=== PATIENT | male | born 1950 | race Caucasian/White ===

== ENCOUNTER 2017-07-12 12:23 | Emergency (ER) | payer MEDICARE, MEDICAID ==
[~2017-07-12] VITALS: Ht 175.3 cm; Wt 58.2 kg
[~2017-07-12 12:23] MED LIST: ALBU18HF2 INH; APIX5TAB3 PO; CIPR-230 PO; DILT120C62 PO; IPRA4AER IH; MORP30TA60 PO; PRED5TAB PO; TEMA15CA PO; TIOT4MIS3 INH
[2017-07-12 12:28] VITALS: BP 145/97
[2017-07-12 13:12] LABS: BASOPHILS # (AUTO) 0.2 X10'3 (0-0.2); BASOPHILS % (AUTO) 1.2 % (0-1); EOSINOPHILS # (AUTO) 0.3 X10'3 (0-0.9); EOSINOPHILS % (AUTO) 2.5 % (0-6); HEMATOCRIT 47.1 % (42.0-52.0); HEMOGLOBIN 15.8 g/dl (14.0-17.9); LYMPHOCYTES # (AUTO) 2.3 X10'3 (1.1-4.8); LYMPHOCYTES % (AUTO) 18.2 % (21-51); MEAN CORPUSCULAR HEMOGLOBIN 33.2 PG (27.0-31.0); MEAN CORPUSCULAR HGB CONC 33.5 % (33.0-36.5); MEAN PLATELET VOLUME 7.9 FL (7.4-10.4); MONOCYTES # (AUTO) 0.9 X10'3 (0-0.9); MONOCYTES % (AUTO) 6.7 % (2-12); NEUTROPHILS % (AUTO) 71.4 % (42-75); PLATELET COUNT 199 X10'3 (140-440); RED BLOOD COUNT 4.76 X10'6 (4.70-6.10); WHITE BLOOD COUNT 12.7 X10'3 (4.5-11.0)
[2017-07-12 13:21] LABS: INR 1.2 INR; PARTIAL THROMBOPLASTIN TIME 28 SECONDS (22-32); PROTHROMBIN TIME 12.6 SECONDS (9.0-12.0)
[2017-07-12 13:27] LABS: ALANINE AMINOTRANSFERASE 225 U/L (12-78); ALBUMIN 3.6 G/DL (3.4-5.0); ALBUMIN/GLOBULIN RATIO 0.8 (1.1-1.5); ALKALINE PHOSPHATASE 86 IU/L (46-116); ANION GAP 3 (8-16); ASPARTATE AMINO TRANSFERASE 159 U/L (10-37); BILIRUBIN,TOTAL 0.9 MG/DL (0.1-1.0); BLOOD UREA NITROGEN 14 MG/DL (7-18); BUN/CREATININE RATIO 16.7 (5.4-32.0); CALCIUM 8.7 MG/DL (8.5-10.1); CHLORIDE 103 MMOL/L (99-107); CREATININE 0.84 MG/DL (0.60-1.10); GLUCOSE 94 MG/DL (70-104); POTASSIUM 4.1 MMOL/L (3.5-5.1); SODIUM 142 MMOL/L (135-145); TOTAL CARBON DIOXIDE 36.2 MMOL/L (24-32); TOTAL PROTEIN 7.9 G/DL (6.4-8.2); eGFR > 90 ML/MIN
== END 2017-07-12 14:18 | disposition home or self-care (01) ==
LOC: ER 12:24
DX: J44.9 Chronic obstructive pulmonary disease, unspecified (principal); Z87.891 Personal history of nicotine dependence
CPT/HCPCS: 36415; 71045; 80053; 84484; 85025; 85610; 85730; 93005; 99285; J7030

== ENCOUNTER 2018-01-05 15:06 | Outpatient (CLI) | payer MEDICARE, MEDICAID ==
[~2018-01-05] VITALS: Ht 175.3 cm; Wt 55.3 kg
[2018-01-05] MEDS ORDERED: MORP30TA60 PO (15:53)
[2018-01-05] MEDS ORDERED: MORP15TA PO (15:55)
[2018-01-05 15:57] LABS: BASOPHILS % (AUTO) 0.5 % (0-1); EOSINOPHILS # (AUTO) 0.1 X10'3 (0-0.9); EOSINOPHILS % (AUTO) 1.8 % (0-6); LYMPHOCYTES # (AUTO) 0.9 X10'3 (1.1-4.8); LYMPHOCYTES % (AUTO) 13.8 % (21-51); MEAN CORPUSCULAR HEMOGLOBIN 32.3 PG (27.0-31.0); MEAN CORPUSCULAR HGB CONC 33.1 % (33.0-36.5); MEAN CORPUSCULAR VOLUME 97.5 FL (78-98); MEAN PLATELET VOLUME 8.1 FL (7.4-10.4); MONOCYTES # (AUTO) 0.6 X10'3 (0-0.9); MONOCYTES % (AUTO) 9.8 % (2-12); NEUTROPHILS # (AUTO) 4.7 X10'3 (1.8-7.7); NEUTROPHILS % (AUTO) 74.1 % (42-75); PRE OP HEMATOCRIT 43.6 % (42.0-52.0); PRE OP HEMOGLOBIN 14.4 g/dL (14.0-17.9); PRE OP PLATELET COUNT 121 X10'3 (140-440); RED BLOOD COUNT 4.47 X10'6 (4.70-6.10)
[2018-01-05] MEDS ORDERED: ALBU8HFA PO (15:59)
[2018-01-05 16:08] LABS: PRE OP INR 1.3 INR; PRE OP PROTIME 13.1 SECONDS (9.0-12.0)
[2018-01-05 16:11] LABS: ALBUMIN 3.1 G/DL (3.4-5.0); ALBUMIN/GLOBULIN RATIO 0.7 (1.1-1.5); ALKALINE PHOSPHATASE 97 IU/L (46-116); BLOOD UREA NITROGEN 12 MG/DL (7-18); BUN/CREATININE RATIO 14.8 (5.4-32.0); CALCIUM 9.4 MG/DL (8.5-10.1); CHLORIDE 101 MMOL/L (99-107); CREATININE 0.81 MG/DL (0.60-1.10); PRE OP ALT 31 U/L (30-65); PRE OP ANION GAP 1 (8-16); PRE OP AST 47 U/L (10-37); PRE OP BILIRUB, TOTAL 0.9 MG/DL (0.0-1.0); PRE OP GLUCOSE 116 MG/DL (70-104); PRE OP SODIUM 137 MMOL/L (135-145); TOTAL CARBON DIOXIDE 34.8 MMOL/L (24-32); TOTAL PROTEIN 7.8 G/DL (6.4-8.2); eGFR > 90 ML/MIN
[2018-01-08] MEDS ORDERED: ringers solution, lacted 1,000 ML IV SCH (05:00)
[2018-01-08] MEDS ORDERED: famotidine 20mg tablet PO ONE (05:30)
== END 2018-01-05 23:59 | disposition home or self-care (01) ==
LOC: PRE-OP 15:06 → EDSTATUS 01-08 15:00
PROVIDERS: ATTEND Anesthesiology Pain Medicine
DX: Z01.818 Encounter for other preprocedural examination (principal); M80.08XA Age-related osteoporosis with current pathological fracture, vertebra(e), initial encounter for fracture; S32.038A Other fracture of third lumbar vertebra, initial encounter for closed fracture; R94.31 Abnormal electrocardiogram [ECG] [EKG]; I48.91 Unspecified atrial fibrillation; I44.4 Left anterior fascicular block; I49.3 Ventricular premature depolarization; Z79.899 Other long term (current) drug therapy; Z88.8 Allergy status to other drugs, medicaments and biological substances; Z99.81 Dependence on supplemental oxygen; Z87.891 Personal history of nicotine dependence
CPT/HCPCS: 36415; 80053; 85025; 85610; 85730; 93005; J7120

== ENCOUNTER 2018-05-31 00:53 | Inpatient (IN) | payer MEDICARE, MEDICAID ==
[~2018-05-31] VITALS: Ht 175.3 cm; Wt 65.5 kg
[~2018-05-31 00:53] MED LIST changes: +ALBU8HFA PO; -CIPR-230 PO; -DILT120C62 PO; +MORP15TA PO; -PRED5TAB PO; -TEMA15CA PO; -TIOT4MIS3 INH
[2018-05-31] MEDS ORDERED: methylPREDNISolone sod succ 125mg/2ml vial IV ONE (00:55)
[2018-05-31] MEDS ORDERED: ipratropium/albuterol 3ml nebule NEB ONE (00:55)
[2018-05-31] MEDS ORDERED: CefTRIAXone 2gm/D5W 50ml 50 ML IV ONE (00:55)
[2018-05-31] MEDS ORDERED: diltiazem 5mg/ml 5ml inj. IV ONE ×2 (01:00→01:40)
[2018-05-31 01:20] LABS: ABG BASE EXCESS 6.3 mmol/L (-2.0-3.0); ABG HCO3 33.8 mmol/L (22.0-26.0); ABG OXYGEN SATURATION 99.5 % (95-98); ABG PCO2 (T) 60.6 mmHg (35.0-48.0); ABG PH (T) 7.365 (7.350-7.450); ABG PO2 (T) 271.6 mmHg (83-108); ALLEN'S TEST Positive; FCOHb 1.5 % (0.5-1.5); FMetHb 0.3 % (0.3-1.12); FO2Hb 97.7 % (94-100); PATIENT TEMPERATURE 37.1; RESPIRATORY RATE (OBSERVED) 20 b/min
[2018-05-31 01:40] LABS: ALANINE AMINOTRANSFERASE 39 U/L (12-78); ALBUMIN 3.1 G/DL (3.4-5.0); ALBUMIN/GLOBULIN RATIO 0.6 (1.1-1.5); ALKALINE PHOSPHATASE 96 IU/L (46-116); ANION GAP 5 (8-16); ASPARTATE AMINO TRANSFERASE 74 U/L (10-37); BILIRUBIN,TOTAL 1.5 MG/DL (0.1-1.0); BLOOD UREA NITROGEN 16 MG/DL (7-18); BUN/CREATININE RATIO 14.4 (5.4-32.0); CALCIUM 9.1 MG/DL (8.5-10.1); CHLORIDE 101 MMOL/L (99-107); CREATININE 1.11 MG/DL (0.60-1.10); GLUCOSE 116 MG/DL (70-104); INR 1.6 INR; POTASSIUM 5.3 MMOL/L (3.5-5.1); PROTHROMBIN TIME 15.7 SECONDS (9.0-12.0); SODIUM 142 MMOL/L (135-145); TOTAL CARBON DIOXIDE 36.4 MMOL/L (24-32); TOTAL PROTEIN 8.3 G/DL (6.4-8.2); eGFR 66 ML/MIN
[2018-05-31 01:41] LABS: PARTIAL THROMBOPLASTIN TIME 28 SECONDS (22-32)
[2018-05-31 01:47] LABS: MAGNESIUM 1.9 MG/DL (1.5-2.4)
[2018-05-31 01:48] LABS: BASOPHILS # (AUTO) 0.2 X10'3 (0-0.2); EOSINOPHILS % (AUTO) 0 % (0-6); LYMPHOCYTES # (AUTO) 0.5 X10'3 (1.1-4.8); LYMPHOCYTES % (AUTO) 4.3 % (21-51); MONOCYTES # (AUTO) 0.8 X10'3 (0-0.9); MONOCYTES % (AUTO) 6.5 % (2-12); NEUTROPHILS # (AUTO) 10.5 X10'3 (1.8-7.7); NEUTROPHILS % (AUTO) 87.2 % (42-75)
[2018-05-31 02:04] LABS: HEMATOCRIT 46.9 % (42.0-52.0); HEMOGLOBIN 15.3 g/dl (14.0-17.9); MEAN CORPUSCULAR HEMOGLOBIN 32.1 PG (27.0-31.0); MEAN CORPUSCULAR HGB CONC 32.7 % (33.0-36.5); MEAN CORPUSCULAR VOLUME 98.3 FL (78-98); MEAN PLATELET VOLUME 8.3 FL (7.4-10.4); PLATELET COUNT 125 X10'3 (140-440); RED BLOOD COUNT 4.77 X10'6 (4.70-6.10); RED CELL DISTRIBUTION WIDTH 15.2 % (11.5-14.5); WHITE BLOOD COUNT 13.1 X10'3 (4.5-11.0)
[2018-05-31] MEDS ORDERED: DILT180C53 (03:05)
[2018-05-31] MEDS ORDERED: DIGO125T PO (03:06)
[2018-05-31] MEDS ORDERED: LORA1TAB PO (03:07)
[2018-05-31] MEDS ORDERED: TIOT4MIS3 IH (03:14)
[2018-05-31] MEDS ORDERED: TEMA15CA PO (03:16)
[2018-05-31] MEDS ORDERED: VERA180T PO (03:19)
[2018-05-31] MEDS ORDERED: IPRA3AMP31 IH (03:23)
[2018-05-31] MEDS ORDERED: mag hydrox/Alum hydrox/simeth 30ml oral suspension PO PRN (03:25)
[2018-05-31] MEDS ORDERED: acetaminophen 325mg tablet PO PRN (03:25)
[2018-05-31] MEDS ORDERED: ondansetron/PF 4mg/2ml inj IV PRN (03:25)
[2018-05-31] MEDS ORDERED: albuterol 2.5 MG/3 ML nebule NEB PRN (03:30)
[2018-05-31] MEDS ORDERED: LORazepam 0.5 MG tablet PO ONE ×2 (03:30→22:15)
[2018-05-31] MEDS ORDERED: ipratropium/albuterol 3ml nebule IH PRN (03:30)
[2018-05-31] MEDS ORDERED: LORazepam 0.5 MG tablet PO PRN (03:30)
--- NOTE | 2018-05-31 03:30 | NUR ---
PT'S PALLIATIVE CARE NURSE SAID THAT WHEN PATIENT IS DISCHARGED HE WILL NEED ASSISTANCE (CAB RIDE) TO GET HOME.
[2018-05-31] MEDS ORDERED: morphine 10mg/0.5ml (conc. morphine) oral syringe PO PRN ×2 (03:35→11:50)
[2018-05-31] MEDS ORDERED: furosemide 10 MG/1 ML 10ml inj IV ONE (03:35)
[2018-05-31 04:57] LABS: CLARITY,URINE CLEAR (Clear); COLOR,URINE YELLOW (Yellow); GLUCOSE, URINE NEGATIVE (Neg); KETONES,URINE TRACE mg/dl (Neg); LEUKOCYTE ESTERASE ,URINE NEGATIVE (Neg); NITRITES, URINE NEGATIVE (Neg); OCCULT BLOOD,URINE TRACE-LYSED (Neg); PROTEIN,URINE 100 mg/dl (Neg); UROBILINOGEN,URINE 0.2 E.U/dL (0.2-1.0)
[2018-05-31 05:03] LABS: UA COLLECTION TYPE CLN CATCH MIDSTREAM
[2018-05-31 05:09] LABS: WBC,URINE 0-4 /HPF (0-4)
[2018-05-31 05:10] LABS: BACTERIA,URINE 1+ /HPF (Neg)
[2018-05-31 05:14] LABS: MUCUS STRANDS MANY /LPF (Neg); SQUAMOUS EPITHELIAL CELL,UR NONE SEEN /LPF (FEW)
--- NOTE | 2018-05-31 06:00 | NUR ---
DNR, FALL RISK, ALLERGY BAND PLACED ON PATIENT.
[2018-05-31] MEDS ORDERED: non-formulary drug (Tiotropium Br/Olodaterol HCl (Stiolto Respimat Inhal Spray) 2 PUFFS) IH SCH (08:00)
[2018-05-31] MEDS ORDERED: diltiazem 30mg tablet PO SCH (08:00)
--- NOTE | 2018-05-31 08:00 | NUR ---
PT FEELING INCREASED SOB, RESPIRATORY CALLED TO BEDSIDE FOR BREATHING TREATMENT
[2018-05-31] MEDS: morphine ER 30mg tablet PO SCH ×2 (08:11→20:49)
--- NOTE | 2018-05-31 08:11 | NUR ---
PT MEDICATED WITH MORNING MEDICATIONS, PT BEDDING ADJUSTED FOR COMFORT, PT MOVES IN BED ADLIB, PT ORIENTED TO CALL LIGHT.
[2018-05-31] MEDS: digoxin 125mcg (0.125mg) tablet PO SCH (08:12)
--- NOTE | 2018-05-31 08:38 | NUR ---
RESPIRATORY JUST FINISHED BREATHING TREATMENT, MEAL TRAY PLACED IN ROOM, PT SITTING UP AND EATING
[2018-05-31 09:42] LABS: ALBUMIN 2.6 G/DL (3.4-5.0); ANION GAP 7 (8-16); BLOOD UREA NITROGEN 21 MG/DL (7-18); BUN/CREATININE RATIO 17.4 (5.4-32.0); CALCIUM 8.6 MG/DL (8.5-10.1); CHLORIDE 99 MMOL/L (99-107); CREATININE 1.21 MG/DL (0.60-1.10); GLUCOSE 201 MG/DL (70-104); POTASSIUM 4.2 MMOL/L (3.5-5.1); SODIUM 140 MMOL/L (135-145); TOTAL CARBON DIOXIDE 33.7 MMOL/L (24-32); eGFR 60 ML/MIN
[2018-05-31] MEDS: diltiazem CD 180mg cap (once-daily) PO SCH (11:50)
[2018-05-31] MEDS: ipratropium/albuterol 3ml nebule IH SCH ×3 (12:00→20:33)
--- NOTE | 2018-05-31 12:28 | NUR ---
Patient in room ED 5. I have received report from Rebecca HALLMAN and had the opportunity to ask questions and assume patient care.
[2018-05-31] MEDS: levoFLOXACIN-Levaquin 750MG/D5 150 ML IV SCH (14:24)
[2018-05-31] MEDS: LORazepam 0.5 MG tablet PO PRN (14:24)
[2018-05-31] MEDS: methylPREDNISolone sod succ 125mg/2ml vial IV SCH ×2 (14:25→16:49)
--- NOTE | 2018-05-31 18:20 | NUR ---
Patient in room PCU 3025. I have received report from VIJI Amos and had the opportunity to ask questions and assume patient care.
--- NOTE | 2018-05-31 18:44 | NUR ---
Problems reprioritized. Patient report given, questions answered & plan of care reviewed with Cat HALLMAN.
[2018-05-31 19:00] VITALS: BP 128/73
[2018-05-31] MEDS: apixaban 5mg tablet PO SCH (20:49)
[2018-05-31 23:00] VITALS: BP 124/70
[2018-06-01] VITALS (17 sets, daily range): BP systolic 115–149; BP diastolic 62–91
[2018-06-01] MEDS: methylPREDNISolone sod succ 125mg/2ml vial IV SCH ×4 (00:18→23:28)
[2018-06-01] MEDS: ipratropium/albuterol 3ml nebule IH SCH ×3 (02:25→07:52)
[2018-06-01] MEDS: LORazepam 0.5 MG tablet PO PRN (05:46)
--- NOTE | 2018-06-01 06:20 | NUR ---
Patient in room PCU 3025. I have received report from VIJI Shelton and had the opportunity to ask questions and assume patient care.
--- NOTE | 2018-06-01 06:25 | NUR ---
Problems reprioritized. Patient report given, questions answered & plan of care reviewed with VIJI Torres.
[2018-06-01 06:46] LABS: BASOPHILS % (AUTO) 0 % (0-1); EOSINOPHILS % (AUTO) 0 % (0-6); HEMATOCRIT 39.9 % (42.0-52.0); HEMOGLOBIN 13.1 g/dl (14.0-17.9); LYMPHOCYTES # (AUTO) 0.3 X10'3 (1.1-4.8); MEAN CORPUSCULAR HGB CONC 32.8 % (33.0-36.5); MEAN CORPUSCULAR VOLUME 97.7 FL (78-98); MONOCYTES # (AUTO) 0.5 X10'3 (0-0.9); MONOCYTES % (AUTO) 3.9 % (2-12); NEUTROPHILS # (AUTO) 12.2 X10'3 (1.8-7.7); NEUTROPHILS % (AUTO) 94.1 % (42-75); PLATELET COUNT 95 X10'3 (140-440); RED BLOOD COUNT 4.08 X10'6 (4.70-6.10); WHITE BLOOD COUNT 13.1 X10'3 (4.5-11.0)
[2018-06-01 07:05] LABS: ALBUMIN 2.1 G/DL (3.4-5.0); ANION GAP 5 (8-16); BLOOD UREA NITROGEN 26 MG/DL (7-18); BUN/CREATININE RATIO 28.9 (5.4-32.0); CALCIUM 8.3 MG/DL (8.5-10.1); CHLORIDE 101 MMOL/L (99-107); GLUCOSE 151 MG/DL (70-104); POTASSIUM 4.1 MMOL/L (3.5-5.1); SODIUM 140 MMOL/L (135-145); TOTAL CARBON DIOXIDE 33.8 MMOL/L (24-32); eGFR 84 ML/MIN
[2018-06-01] MEDS: diltiazem CD 180mg cap (once-daily) PO SCH (08:00)
[2018-06-01] MEDS ORDERED: diltiazem 5mg/ml 5ml inj. IV ONE ×2 (08:30)
[2018-06-01] MEDS: morphine ER 30mg tablet PO SCH ×2 (08:40→20:06)
[2018-06-01] MEDS: apixaban 5mg tablet PO SCH ×2 (08:41→20:07)
[2018-06-01] MEDS: digoxin 125mcg (0.125mg) tablet PO SCH (08:41)
[2018-06-01] MEDS: levoFLOXACIN-Levaquin 750MG/D5 150 ML IV SCH (08:43)
[2018-06-01] MEDS: pantoprazole 40mg Tablet.DR PO SCH (08:46)
--- NOTE | 2018-06-01 09:00 | NUR ---
Patient's HR reaching 170, notified Dr. Blanco and received orders. Patient's BP 125/70, patient asymptomatic, alert and oriented, will follow through with orders and continue to monitor.
[2018-06-01] MEDS: diltiazem-D5W 125mg/125ml 125 ML IV SCH ×2 (09:49→11:06)
[2018-06-01] MEDS ORDERED: LORA1TAB PO ×2 (09:56→13:21)
--- NOTE | 2018-06-01 10:00 | NUR ---
Started Cardizem drip at 5 mg/hr per MD order, monitoring vital signs q 15 minutes for 1st hour, then q 30 min. Pt's HR in 140's and BP stable, will continue to monitor.
--- NOTE | 2018-06-01 10:20 | NUR ---
Problems reprioritized. Patient report given, questions answered & plan of care reviewed with VIJI Ochao.
--- NOTE | 2018-06-01 10:27 | NUR ---
Patient in room PCU 3025. I have received report from Melissa HALLMAN and had the opportunity to ask questions and assume patient care.
[2018-06-01] MEDS ORDERED: non-formulary drug (Morphine Sulfate 1 TAB) PO SCH (10:40)
--- NOTE | 2018-06-01 10:42 | NUR ---
Spoke with Dr. Blanco in regards to patient's heart rate in the 120's after being on the Cardizem drip at 5 mg/hr for the past 40 minutes. New order to increase Cardizem to 7 mg/hr and page Dr. Blanco in one hour with update. patient's blood pressure is 130/78, will continue to monitor.
[2018-06-01] MEDS: ipratropium 0.5 MG/2.5ML nebule IH SCH ×4 (11:04→23:14)
[2018-06-01] MEDS: morphine IR (immed. release) 30mg tablet PO PRN ×2 (13:14→23:28)
--- NOTE | 2018-06-01 14:27 | NUR ---
PAGER ID: [phone] MESSAGE: [id number] Marv Yanes Pt's BP is stable at 133/83, HR was in the 90's to 104, however, now is about 113. Cardizem drip running 7 mg/hr Thank you, Gabriela #[phone]
--- NOTE | 2018-06-01 15:00 | NUR ---
Problems reprioritized. Patient report given, questions answered & plan of care reviewed with Cat HALLMAN.
[2018-06-01] MEDS: temazepam 15mg capsule PO SCH (20:05)
[2018-06-01] MEDS: LORazepam 1 MG tablet PO PRN (20:07)
[2018-06-01] MEDS: magnesium hydroxide 30ml (MOM) UD suspension PO PRN (20:20)
[2018-06-02] VITALS (12 sets, daily range): BP systolic 104–143; BP diastolic 45–90
[2018-06-02] MEDS: diltiazem-D5W 125mg/125ml 125 ML IV SCH (03:44)
[2018-06-02] MEDS: ipratropium 0.5 MG/2.5ML nebule IH SCH ×6 (04:01→22:35)
--- NOTE | 2018-06-02 06:20 | NUR ---
Problems reprioritized. Patient report given, questions answered & plan of care reviewed with VIJI Harmon.
--- NOTE | 2018-06-02 07:02 | NUR ---
Patient in room PCU 3025. I have received report from Cat HALLMAN and had the opportunity to ask questions and assume patient care.
[2018-06-02 07:32] LABS: BASOPHILS % (AUTO) 0.1 % (0-1); EOSINOPHILS % (AUTO) 0 % (0-6); HEMATOCRIT 39.7 % (42.0-52.0); HEMOGLOBIN 12.9 g/dl (14.0-17.9); LYMPHOCYTES # (AUTO) 0.2 X10'3 (1.1-4.8); MEAN CORPUSCULAR HEMOGLOBIN 31.7 PG (27.0-31.0); MEAN CORPUSCULAR HGB CONC 32.5 % (33.0-36.5); MEAN CORPUSCULAR VOLUME 97.7 FL (78-98); MEAN PLATELET VOLUME 9.4 FL (7.4-10.4); MONOCYTES # (AUTO) 0.3 X10'3 (0-0.9); MONOCYTES % (AUTO) 2.7 % (2-12); NEUTROPHILS # (AUTO) 11.5 X10'3 (1.8-7.7); NEUTROPHILS % (AUTO) 95.2 % (42-75); PLATELET COUNT 109 X10'3 (140-440); RED BLOOD COUNT 4.06 X10'6 (4.70-6.10); RED CELL DISTRIBUTION WIDTH 15.3 % (11.5-14.5)
[2018-06-02 07:41] LABS: ALBUMIN 2.2 G/DL (3.4-5.0); ANION GAP 4 (8-16); BLOOD UREA NITROGEN 28 MG/DL (7-18); BUN/CREATININE RATIO 31.1 (5.4-32.0); CALCIUM 8.5 MG/DL (8.5-10.1); CHLORIDE 101 MMOL/L (99-107); GLUCOSE 133 MG/DL (70-104); POTASSIUM 4.1 MMOL/L (3.5-5.1); SODIUM 138 MMOL/L (135-145); TOTAL CARBON DIOXIDE 33.4 MMOL/L (24-32); eGFR 84 ML/MIN
[2018-06-02] MEDS: levoFLOXACIN-Levaquin 750MG/D5 150 ML IV SCH (08:17)
[2018-06-02] MEDS: methylPREDNISolone sod succ 125mg/2ml vial IV SCH ×2 (08:17→16:30)
[2018-06-02] MEDS: digoxin 125mcg (0.125mg) tablet PO SCH (08:17)
[2018-06-02] MEDS: morphine ER 30mg tablet PO SCH ×2 (08:18→20:36)
[2018-06-02] MEDS: pantoprazole 40mg Tablet.DR PO SCH (08:18)
[2018-06-02] MEDS: apixaban 5mg tablet PO SCH ×2 (08:18→20:36)
[2018-06-02] MEDS: morphine IR (immed. release) 30mg tablet PO PRN (11:54)
--- NOTE | 2018-06-02 14:38 | NUR ---
Problems reprioritized. Patient report given, questions answered & plan of care reviewed with Hodan HALLMAN.
[2018-06-02] MEDS ORDERED: diltiazem 30mg tablet PO ONE (16:15)
[2018-06-02] MEDS: LORazepam 1 MG tablet PO PRN (20:36)
[2018-06-02] MEDS: temazepam 15mg capsule PO SCH (20:36)
[2018-06-02] MEDS: magnesium hydroxide 30ml (MOM) UD suspension PO PRN (20:51)
[2018-06-02] MEDS ORDERED: diltiazem 60mg tablet PO SCH (21:00)
[2018-06-03] MEDS: methylPREDNISolone sod succ 125mg/2ml vial IV SCH (00:31)
[2018-06-03] MEDS: ipratropium 0.5 MG/2.5ML nebule IH SCH (02:57)
[2018-06-03 03:00] VITALS: BP 126/70
--- NOTE | 2018-06-03 04:47 | NUR ---
Patient was found asleep with home medications on lap by assistant director of nursing. Once reported, medication was then confiscated. Lorazepam counted at 56 out of labeled 60 quantity Rod's bottle and Temazepam counted at 91 out of labeled 60 quantity Rod's bottle.
--- NOTE | 2018-06-03 04:49 | NUR ---
Patient denied self-administration any of the home medication. Pt only stated that he was counting them. Nurse educated the patient as to why home medications were not allowed to be kept at bedside by patients. Patient refused nurse explanation stating that what was ordered to be given by MD were "not enough to put him to sleep."
--- NOTE | 2018-06-03 04:50 | NUR ---
Nurse was called into room by patient who stated he wanted to "check out" of the hospital after home medication was confiscated and further search in personal belongings would be necessary. Nurse reviewed with patient concerning means as to how he would be able to be transported home independently and patient stated he would "call a cab." Nurse then reported patient's request to charge nurse as well as night-shift hospitalist Dr. Lamar. Both consented to patient's legal right to leave AMA. Once charge nurse and MD were notified then AMA paper were then brought into patient's room to be signed. Patient signed paper. Once paper was signed, IV was taken out, hospital bands were cut off, and personal clothes were assisted onto pt.
--- NOTE | 2018-06-03 05:20 | NUR ---
Caregiver, Chayito Alves of [facility] [employer] has been notified of events as written in notes that have taken place. Caregiver stated that she would be there in a half an hour.
--- NOTE | 2018-06-03 05:47 | NUR ---
Patient was assisted by aide down to the lobby area.
== END 2018-06-03 05:51 | disposition home health service (06) | DRG 871 ==
LOC: ER 00:54 → ED HOLD 03:24 → EDBEDREQ 12:24 → PCU 3S 12:53
PROVIDERS: ADMIT Internal Medicine; ATTEND Family Medicine
DX: A41.9 Sepsis, unspecified organism (principal); J18.9 Pneumonia, unspecified organism; J96.20 Acute and chronic respiratory failure, unspecified whether with hypoxia or hypercapnia; I21.A1 Myocardial infarction type 2; J44.1 Chronic obstructive pulmonary disease with (acute) exacerbation; J44.0 Chronic obstructive pulmonary disease with (acute) lower respiratory infection; B19.20 Unspecified viral hepatitis C without hepatic coma; E87.5 Hyperkalemia; F41.9 Anxiety disorder, unspecified; G89.4 Chronic pain syndrome; I27.20 Pulmonary hypertension, unspecified; I48.0 Paroxysmal atrial fibrillation; I50.9 Heart failure, unspecified; R91.1 Solitary pulmonary nodule; Z51.5 Encounter for palliative care; Z88.8 Allergy status to other drugs, medicaments and biological substances; Z79.899 Other long term (current) drug therapy; Z87.891 Personal history of nicotine dependence
CPT/HCPCS: 36415; 36600; 71045; 71250; 80048; 80053; 81001; 82803; 83605; 83735; 83880; 84145; 84484; 85018; 85025; 85610; 85730; 87040; 87070; 93005; 94640; 94760; 96365; 96375; 96376; 97162; 97530; 99285; G0378; J0696; J1940; J1956; J2930; J3490